=== PATIENT | female | born 1995 ===

== ENCOUNTER 2018-08-26 07:19 | Outpatient (CLI) | payer OTHER ==
--- NOTE | 2018-08-26 08:25 | ULT ---
RIGHT UPPER QUADRANT ABDOMINAL ULTRASOUND: HISTORY: Right upper quadrant abdominal pain for five days. TECHNIQUE: Multiplanar dumas-scale and color Doppler images were obtained in a right upper quadrant abdominal ult rasound. FINDINGS: The liver is increased in echogenicity without focal lesions or intrahepatic ductal dilatation. The gallbladder is normal without stones, sludge, gallbladder wall thickening, or pericholecystic fluid. The common bile duct is normal, measuring 4 mm. The visualized portions of the pancreas are unremarkable. The right kidney is normal in echogenicity without hydronephrosis or calculus and measures 9 cm in length. IMPRESSION: Fatty liver. POS: JANENE
== END 2018-08-26 07:20 | disposition home or self-care (01) ==
LOC: NAV ULT 07:19
PROVIDERS: ATTEND Internal Medicine
DX: R10.11 Right upper quadrant pain (principal); K76.0 Fatty (change of) liver, not elsewhere classified
CPT/HCPCS: 76705